=== PATIENT | female | born 1970 ===

== ENCOUNTER 2022-12-17 08:58 | Outpatient (CLI) | payer OTHER | END 2022-12-17 08:59 | disposition home or self-care (01) | LOC: LAB 08:58 | PROVIDERS: ATTEND Orthopaedic Surgery | DX: Z01.818 Encounter for other preprocedural examination (principal); D64.89 Other specified anemias; E88.89 Other specified metabolic disorders; D68.8 Other specified coagulation defects; N39.0 Urinary tract infection, site not specified; A49.02 Methicillin resistant Staphylococcus aureus infection, unspecified site; E11.9 Type 2 diabetes mellitus without complications; M66.362 Spontaneous rupture of flexor tendons, left lower leg; M76.822 Posterior tibial tendinitis, left leg; I10 Essential (primary) hypertension; I49.9 Cardiac arrhythmia, unspecified; Z76.89 Persons encountering health services in other specified circumstances; M25.561 Pain in right knee ==

== ENCOUNTER 2022-12-17 10:44 | Outpatient (CLI) | payer OTHER | END 2022-12-17 10:49 | disposition home or self-care (01) | LOC: SONOGRAMA 10:44 | DX: M66.362 Spontaneous rupture of flexor tendons, left lower leg (principal) ==

== ENCOUNTER → 2022-12-31 | Day surgery (SDC) | payer OTHER ==
[~2022-12-31] VITALS: Ht 160 cm; Wt 108.0 kg
[~2022-12-31] MED LIST: LIPITOR40 M1 PO; LOSARTAN POTASS50 MG PO; METFORMIN HCL750 MG PO; TENCON 50-3251 EACH PO
== END | disposition home or self-care (01) ==
LOC: ADM 12-26 11:00 → CIR.AMB 06:00
PROVIDERS: ATTEND Orthopaedic Surgery
DX: M76.822 Posterior tibial tendinitis, left leg (principal); M76.72 Peroneal tendinitis, left leg; Z20.822 Contact with and (suspected) exposure to COVID-19
CPT/HCPCS: 28300; 20902; L8699

== ENCOUNTER 2023-01-10 10:14 | Outpatient (CLI) | payer OTHER | END 2023-01-10 10:24 | disposition home or self-care (01) | LOC: RAD 10:14 | PROVIDERS: ATTEND Orthopaedic Surgery | DX: M79.672 Pain in left foot (principal) ==